=== PATIENT | male | born 1980 | race Asian ===

== ENCOUNTER 2017-07-24 09:18 | Emergency (ER) | payer OTHER ==
--- NOTE | 2017-07-24 09:20 | PDOC ---
Attending Attestation - Resident Resident Name: Hernando Bright - ED Attending Attestation I have performed the following: I have examined & evaluated the patient, The case was reviewed & discussed with the resident, I agree w/resident's findings & plan, Exceptions are as noted - HPI HPI: 36 yo M no significant PMH presents with R hand injury. He states he was working with a lathe, a piece of metal struck his hand, lacerating multiple fingers at once. His coworkers applied a tourniquet to the upper arm and transported him to ED for further evaluation. Wounds have oozed blood, no active bleeding. No other injuries. Tetanus is not up to date. - Physicial Exam PE: GENERAL: Awake, alert, and fully oriented, in no acute distress HEAD: No signs of trauma EYES: PERRLA, EOMI, sclera anicteric, conjunctiva clear ENT: Auricles normal inspection, hearing grossly normal, nares patent, oropharynx clear without exudates. Moist mucosa NECK: Normal ROM, supple, no lymphadenopathy, JVD, or masses LUNGS: Breath sounds equal, clear to auscultation bilaterally. No wheezes, and no crackles HEART: Regular rate and rhythm, normal S1 and S2, no murmurs, rubs or gallops EXTREMITIES: Normal range of motion, no edema. No clubbing or cyanosis. No cords, erythema, or tenderness NEUROLOGICAL: Cranial nerves II through XII grossly intact. Normal speech, normal gait. Motor and sensation intact. SKIN: Warm, Dry, normal turgor, no rashes or lesions noted. R hand with deformities to fingers 2-5. Lacerations to PIPs fingers 2-5, as well as DIP of 2nd finger. - Medical Decision Making Ortho consulted to evaluate, as the dislocations were significant, as well as the lacerations. All fingers were reduced in ED, lacerations repaired. Covered with tdap and ancef. Will splint and DC home on prophylactic abx.
[2017-07-24] MEDS ORDERED: morphine CARPU-JECT 4 MG/1 ML DISP.SYRIN IVPUSH ONE ×3 (09:27→09:51)
[2017-07-24 09:38] VITALS: TEMP 98; BMI 25.9
[2017-07-24 09:52] LABS: BASOPHIL 2.1 % (0-2.0); EOSINOPHIL 1.2 % (0-4.5); MCH 25.3 pg (25.7-33.7); MCHC 32.2 g/dl (32.0-35.9); MEAN CELL VOLUME 78.6 fl (80-96); MEAN PLT VOLUME 8.6 fl (7.5-11.1); NEUTROPHILS 37.5 % (42.8-82.8); PLATELET COUNT 398 K/MM3 (134-434); RDW 13.7 % (11.9-15.9); WHITE BLOOD COUNT 10.1 K/mm3 (4.0-10.8)
[2017-07-24] MEDS ORDERED: CEFAZOLIN 1 GM in DEXTROSE 5%-WATER - 50 ML IVPB ONE (09:55)
[2017-07-24] MEDS ORDERED: SODIUM CHLORIDE 1,000 ML IV STA (09:55)
[2017-07-24] MEDS ORDERED: morphine CARPU-JECT 4 MG/1 ML DISP.SYRIN ONE (10:00)
[2017-07-24] MEDS ORDERED: ceFAZolin SODIUM 1 GM VIAL ONE (10:00)
[2017-07-24 10:03] LABS: INR 1.04 (0.82-1.09); PROTHROMBIN TIME (PATIENT) 11.6 SEC (10.2-13.0)
[2017-07-24] MEDS ORDERED: LIDOCAINE HCL 2% (20ML MULTI-DOSE VIAL) NR ONE ×2 (10:05→10:13)
[2017-07-24 10:08] LABS: ALBUMIN 4.3 g/dl (3.5-5.0); ALK PHOS 97 U/L (32-92); ANION GAP 11 (8-16); BILIRUBIN,TOTAL 0.6 mg/dl (0.2-1.0); CALCIUM 9.7 mg/dl (8.4-10.2); CO2 23 mmol/L (22-28); CREATININE 0.8 mg/dl (0.6-1.3); GLUCOSE,RANDOM 112 mg/dl (74-106); PHOSPHOROUS 2.9 mg/dl (2.5-4.6); SGOT/AST 23 U/L (10-42); SGPT/ALT 23 U/L (10-40); TOT PROT 7.8 g/dl (6.4-8.3)
--- NOTE | 2017-07-24 10:32 | PDOC ---
History of Present Illness - General Chief Complaint: Injury Stated Complaint: LACERATION R HAND Time Seen by Provider: 07/24/17 09:20 - History of Present Illness Initial Comments: 36 year old previously healthy male presenting after getting his hand caught in a metal lathe at work. Originally,the tip of his glove was caught in the machine as it was moving then his fingers were brought into the machine. There was immediate deformity of the hand and bleeding from the palmar surface of his PIPs. He was given no medication in route. the machine itself was metal and he did not get cut by a metal blade but was caused the most trauma by blunt force and twisting. VSS on arrival. 07/24/17 10:27 07/24/17 15:12 Past History - Past Medical History Allergies/Adverse Reactions: Allergies Allergy/AdvReac Type Severity Reaction Status Date / Time No Known Allergies Allergy Verified 07/24/17 09:46 Home Medications: Ambulatory Orders Cephalexin Monohydrate [Keflex -] 500 mg PO BID #20 capsule 07/24/17 Oxycodone HCl/Acetaminophen [Percocet 5-325 mg Tablet] 1 - 2 tab PO Q6H #20 tab MDD 4 tablets 07/24/17 Other medical history: pt denies - Psycho/Social/Smoking Cessation Hx Anxiety: No Suicidal Ideation: No Smoking History: Never smoked Hx Alcohol Use: No Drug/Substance Use Hx: No Substance Use Type: None Review of Systems - Review of Systems Constitutional: No: Chills, Diaphoresis, Fever HEENTM: No: Blurred Vision, Tearing Respiratory: No: Cough, Shortness of Breath, Wheezing, Productive cough Cardiac (ROS): No: Chest Pain, Edema ABD/GI: No: Constipated, Diarrhea, Nausea *Physical Exam - Vital Signs Last Vital Signs Temp Pulse Resp BP Pulse Ox 98 F 77 20 109/83 100 07/24/17 09:19 07/24/17 09:19 07/24/17 09:19 07/24/17 09:57 07/24/17 09:19 - Physical Exam General Appearance: Yes: Nourished, Appropriately Dressed, Apparent Distress, Severe Distress HEENT: positive: EOMI, DAYA, Normal Voice Respiratory/Chest: positive: Lungs Clear, Normal Breath Sounds. negative: Respiratory Distress Cardiovascular: positive: Regular Rhythm, Regular Rate, S1, S2. negative: Murmur Gastrointestinal/Abdominal: positive: Normal Bowel Sounds, Flat, Soft. negative : Tender Musculoskeletal: positive: Other (Open wounds across the 2nd, 3rd, 4th, and 5th palmar PIP surface of is right hand with extravasation of soft tissue and violation of joint space. 2-5th digits of the right hand exhibited ulnar deviation indicating dislocation vs. fracture. Sensation intact at the tips of his fingers but unable to move his fingers pre-anesthesis 2/2 to pain. Post anesthesia and reduction he still had sensation hat his finger tips and was able to extend and flex his digits with slightly limited range of motion 2/2 pain. Minimially bleeding from areas of skin breakage, no debris identified in wound, distal skin did not appeared cyanotic. Pain across entire hand but mostly in 4th digit.). negative: Normal Inspection Extremity: positive: Tender (Per above). negative: Normal Inspection (Per above ), Normal Range of Motion (Per above) Integumentary: positive: Warm. negative: Normal Color, Dry, Cyanotic Neurologic: positive: Fully Oriented, Alert, Normal Mood/Affect Procedures - Laceration/Wound Repair Right Volar Hand Wound Length: 12.6 to 20 cm Wound Explored: clean, no foreign body present Wound's Depth, Shape: superficial, linear Irrigated w/ Saline: Yes Betadine Prep: No Anesthesia: 2% Lidocaine Amount of Anesthetic (ccs): 10 Wound Debrided: minimal Wound Repaired With: Sutures Suture Size/Type: 4:0, nylon Layer Closure: Yes (vertical matresses used occasionally) Sterile Dressing Applied: Yes (bacitracin) Splint Applied: Yes (Volar hand splint with kerlex and geoffrey wraps) Type of Splint Applied: Volar hand splint Sling Applied: No Progress: Patient was given 14 IV morphine and exploration of his hand after irrigation of 1 L sterile water revealed 5 clean mostly linear lacerations (Over volar PIP joints and one along the enoch-medial edge of the 2nd digit) extending into the soft tissue without exposed tendon but both the 3rd and 4th digit PIP joint spaces appeared visible prior to reduction.A wrist block was performed and the fingers were reduced by orthopedic surgery and further anesthesia with digital blocks was employed. The wounds were well anesthetized. Repair of the 5th, 4th , 3rd digit, and proximal 2nd digit only required simple interrupted sutures. The distal 2nd digit wound required two vertical mattress sutures but was well approximated. There was minimal bleeding and the patient tolerated the procedure fairly well. He was neurovascularly intact before and after the procedure at the distal edge of his fingers. 07/24/17 14:52 - Additional Procedures Additional Procedures: other (Ring removal with ring cutting device. Two cuts had to be made with the ring cutting device because of the density of the metal and inability to pry it apart after the first incision.) ED Treatment Course - LABORATORY CBC & Chemistry Diagram: 07/24/17 09:29 07/24/17 09:29 - ADDITIONAL ORDERS Additional order review: Laboratory Results 07/24/17 07/24/17 09:29 09:29 INR 1.04 Sodium 137 Potassium 3.8 Chloride 103 Carbon Dioxide 23 Anion Gap 11 BUN 13 Creatinine 0.8 Creat Clearance w eGFR > 60 Random Glucose 112 H Calcium 9.7 Phosphorus 2.9 Magnesium 2.0 Total Bilirubin 0.6 AST 23 ALT 23 Alkaline Phosphatase 97 H Total Protein 7.8 Albumin 4.3 07/24/17 09:29 RBC 5.57 MCV 78.6 L MCHC 32.2 RDW 13.7 MPV 8.6 Neutrophils % 37.5 L Lymphocytes % 52.5 H Monocytes % 6.7 Eosinophils % 1.2 Basophils % 2.1 H - RADIOLOGY Radiology Studies Ordered: Category Date Time Status HAND- RIGHT [RAD] Stat Radiology 07/24/17 10:25 Ordered - Medications Given in the ED: ED Medications Discontinued Medications Generic Name Dose Route Start Last Admin Trade Name Freq PRN Reason Stop Dose Admin Cefazolin Sodium 1 gm/ 50 mls @ 100 mls/hr 07/24/17 09:55 07/24/17 10:09 Dextrose IVPB 07/24/17 10:24 100 mls/hr ONCE ONE Administration Morphine Sulfate 6 mg 07/24/17 09:27 07/24/17 09:30 Morphine Injection - IVPUSH 07/24/17 09:28 6 mg ONCE ONE Administration Morphine Sulfate 4 mg 07/24/17 09:39 07/24/17 09:46 Morphine Injection - IVPUSH 07/24/17 09:40 4 mg ONCE ONE Administration Morphine Sulfate 4 mg 07/24/17 09:51 07/24/17 10:05 Morphine Injection - IVPUSH 07/24/17 09:52 4 mg ONCE ONE Administration Medical Decision Making - Medical Decision Making 36 year old male with right hand injury. On portable x-ray there appears to be dislocation at the PIPs of digits 1-4 as well as lacerations into the joint space of digits 3 and 4 with laceration extending into the soft tissue of joints 2 and 5. Orthopedics was called to evaluate the wound. 14 of morphine (re -dosed twice after initial 6 IV). His ring was removed with two cuts from the ring cutter. Fingers were reduced by othopedics after a wrist and two digital blocks were performed. Post reduction X ray demonstrated well reduced 3rd and 4th digits with 2nd and 5th digits partially obscured at the dips because of flexion. Hand was irrigated and closed per procedure note. 07/24/17 10:47 There were three films taken of his hand because the 2nd post reduction film did not clearly show his 4th and 2nd digits. On the final set of films it appeared as if his 2nd DIP was dislocated. There were no ortho physicians in house and he stil had good motion in his 2nd digit joints with intact neurvaculature so further evaluation can be deferred until his return within 48 hours. He was discharged with Ancef x 10 days and oxycodone x 20 pills. 07/24/17 14:46 IF HE RETURNS ON 07/25/17, PLEASE GIVE ORTHO A CALL BECAUSE THEY WILL BE IN- HOUSE. 07/24/17 15:17 *DC/Admit/Observation/Transfer Diagnosis at time of Disposition: Hand injury - Discharge Dispostion Admit: No - Prescriptions Prescriptions: Cephalexin Monohydrate [Keflex -] 500 mg PO BID #20 capsule Oxycodone HCl/Acetaminophen [Percocet 5-325 mg Tablet] 1 - 2 tab PO Q6H #20 tab MDD 4 tablets - Referrals Referrals: Darci Ibarra MD [Staff Physician] - Emergency Dept,PhysicianMD [Emergency Physician] - - Patient Instructions Printed Discharge Instructions: DI for Finger Dislocation, DI for Laceration Repair -- Complex, DI for Laceration Repair -- Finger Additional Instructions: Please keep your hand wounds clean and dry. You must keep the cast on 24 hours a day and keep it dry. If the tips of your fingers are becoming numb or more painful then you can loosen the bandages. Please return to the ED tomorrow or the day after to have someone take a look at your wounds to make sure there is no infection. Please return earlier if you have fevers, chills, or other sick symptoms. Please make an appointment with the orthopedic doctor who we listed on this sheet. - Post Discharge Activity Work/School Note: Back to Work
[2017-07-24] MEDS ORDERED: HYDROmorphone HCL CARPU-JECT 1 MG/1 ML DISP.SYRIN ONE (12:23)
[2017-07-24] MEDS ORDERED: HYDROmorphone HCL CARPU-JECT 1 MG/1 ML DISP.SYRIN IVPUSH ONE (12:33)
[2017-07-24] MEDS ORDERED: DIPHTH,PERTUSS(ACELL),TET 0.5 ML DISP.SYRIN IM ONE (13:22)
[2017-07-24] MEDS ORDERED: ONDANSETRON 4 MG/2 ML VIAL IVPUSH ONE (13:45)
[2017-07-24] MEDS ORDERED: ONDANSETRON 4 MG/2 ML VIAL ONE (13:47)
[2017-07-24] MEDS ORDERED: IBUPROFEN 400 MG TABLET (FP) PO ONE ×2 (14:47→14:49)
[2017-07-24 14:56] VITALS: BP 125/89; PULSE 52
--- NOTE | 2017-07-26 11:23 | CONSULT ---
Consult Reason for Consultation:: right hand - History of Present Illness History of Present Illness: 36-year-old male is here for evaluation of his right hand. His glove got caught in a piece of heavy machinery and he immediately had pain in his hand. He had open wounds on his hands and went to the emergency room and had an x-ray was diagnosed with PIP dislocations of the index through small finger. Orthopedics was consulted. His pain is worse with movement and better with rest. - History Source History Provided By: Patient, Medical Record - Alcohol/Substance Use Hx Alcohol Use: No - Smoking History Smoking history: Never smoked Home Medications - Allergies Allergies/Adverse Reactions: Allergies Allergy/AdvReac Type Severity Reaction Status Date / Time No Known Allergies Allergy Verified 07/26/17 08:55 - Home Medications Home Medications: Ambulatory Orders Cephalexin Monohydrate [Keflex -] 500 mg PO BID #20 capsule 07/24/17 Oxycodone HCl/Acetaminophen [Percocet 5-325 mg Tablet] 1 - 2 tab PO Q6H #20 tab MDD 4 tablets 07/24/17 Review of Systems - Review of Systems Constitutional: reports: No Symptoms Eyes: reports: No Symptoms HENT: reports: No Symptoms Neck: reports: No Symptoms Cardiovascular: reports: No Symptoms Respiratory: reports: No Symptoms Gastrointestinal: reports: No Symptoms Genitourinary: reports: No Symptoms Breasts: reports: No Symptoms Reported Musculoskeletal: reports: Extremity Pain Integumentary: reports: Wound Neurological: reports: No Symptoms Endocrine: reports: No Symptoms Hematology/Lymphatic: reports: No Symptoms Physical Exam Vital Signs: Vital Signs Temperature 98 F 07/24/17 09:19 Pulse Rate 52 L 07/24/17 14:55 Respiratory Rate 16 07/24/17 14:55 Blood Pressure 125/89 07/24/17 14:55 O2 Sat by Pulse Oximetry (%) 97 07/24/17 14:55 Constitutional: Yes: Well Nourished, Mild Distress HENT: Yes: Atraumatic, Normocephalic Extremities: Yes: Other ( right hand: There are open wounds volarly along the index, long, ring and small fingers at the PIP joints consistent with forceful dislocations. There is also a laceration along the tip of the index finger volarly. there is no sign of infection. Sensation is intact except for the tip of the index finger just distal to the laceration here. FDS and FDP appear intact in all fingers. Fingers are well-perfused. Compartments soft.) Labs: CBC, BMP 07/24/17 09:29 07/24/17 09:29 Imaging - Results X-ray: Report Reviewed, Image Reviewed ( PIP dislocations of the index through small finger) Assessment/Plan I discussed today's findings and treatment options the patient. I recommended reduction of the index, long, ring and small finger PIP joints. He would like to proceed. Procedure, right index finger, long finger, ring finger and small finger PIP joint reductions. Using sterile technique 10 cc of 2% lidocaine was used to anesthetize the hand by performing a median and ulnar nerve block at the wrist. After adequate anesthesia was obtained a manipulation was performed on each finger and improved alignment was obtained. The patient tolerated the procedure well. After the procedure the resident physician closed the wounds. The evaluation of this patient and procedure was performed together with Dr. Darci Ibarra Postreduction x-rays were obtained which showed persistent subluxation of the small finger PIP joint. The patient was discharged by the ER staff prior to review of the x-rays and was recalled to the ER but did not return immediately.
== END 2017-07-24 15:09 | disposition home or self-care (01) ==
LOC: FER 09:18
PROC: 0HQFXZZ Repair Right Hand Skin, External Approach (ICD-10-PCS; principal; 2017-07-24)
PROC: 0RSSXZZ Reposition Right Carpometacarpal Joint, External Approach (ICD-10-PCS; 2017-07-24)
PROC: 3E033GC Introduction of Other Therapeutic Substance into Peripheral Vein, Percutaneous Approach (ICD-10-PCS; 2017-07-24)
PROC: 3E0337Z Introduction of Electrolytic and Water Balance Substance into Peripheral Vein, Percutaneous Approach (ICD-10-PCS; 2017-07-24)
PROC: 3E0234Z Introduction of Serum, Toxoid and Vaccine into Muscle, Percutaneous Approach (ICD-10-PCS; 2017-07-24)
DX: S63.124A Dislocation of interphalangeal joint of right thumb, initial encounter (principal); S63.270A Dislocation of unspecified interphalangeal joint of right index finger, initial encounter; S63.272A Dislocation of unspecified interphalangeal joint of right middle finger, initial encounter; S63.274A Dislocation of unspecified interphalangeal joint of right ring finger, initial encounter; S63.276A Dislocation of unspecified interphalangeal joint of right little finger, initial encounter; S61.210A Laceration without foreign body of right index finger without damage to nail, initial encounter; S61.216A Laceration without foreign body of right little finger without damage to nail, initial encounter; S61.212A Laceration without foreign body of right middle finger without damage to nail, initial encounter; S61.214A Laceration without foreign body of right ring finger without damage to nail, initial encounter; S61.011A Laceration without foreign body of right thumb without damage to nail, initial encounter; W31.89XA Contact with other specified machinery, initial encounter; Y93.89 Activity, other specified; Y92.9 Unspecified place or not applicable; Y99.0 Civilian activity done for income or pay
CPT/HCPCS: 36415; 73130-TC-RT; 80053; 83735; 84100; 85025; 85610; 86850; 86900; 86901; 90715; 99285-25

== ENCOUNTER 2017-07-26 08:50 | Day surgery (SDC) | payer OTHER ==
[2017-07-26 09:14] VITALS: BMI 29.1
[2017-07-26] MEDS ORDERED: LIDOCAINE HCL 2% (20ML MULTI-DOSE VIAL) NR ONE (10:03)
--- NOTE | 2017-07-26 10:19 | PDOC ---
History of Present Illness - General Chief Complaint: Revisit,Wound Recheck Stated Complaint: WOUND CHECK Time Seen by Provider: 07/26/17 08:52 History Source: Patient (Patient seen in ER on 07.24 for dislocation, lacerations hand , sutures done in ER, Ortho consult Kp BELLE on behalf of Dr Ibarra seen in ER at that time , advised to follow up in ER.) Exam Limitations: No Limitations - History of Present Illness Occurred: reports: other (2 days ago) Severity: reports: moderate Past History - Past Medical History Allergies/Adverse Reactions: Allergies Allergy/AdvReac Type Severity Reaction Status Date / Time No Known Allergies Allergy Verified 07/26/17 08:55 Home Medications: Ambulatory Orders Cephalexin Monohydrate [Keflex -] 500 mg PO BID #20 capsule 07/24/17 Oxycodone HCl/Acetaminophen [Percocet 5-325 mg Tablet] 1 - 2 tab PO Q6H #20 tab MDD 4 tablets 07/24/17 Other medical history: DENIES - Psycho/Social/Smoking Cessation Hx Anxiety: No Suicidal Ideation: No Smoking History: Never smoked Have you smoked in the past 12 months: No Information on smoking cessation initiated: No Hx Alcohol Use: No Drug/Substance Use Hx: No Substance Use Type: None Review of Systems - Review of Systems Able to Perform ROS?: Yes Is the patient limited [place] proficient: Yes Constitutional: No: Symptoms Reported, See HPI, Chills, Diaphoresis, Fever, Loss of Appetite, Malaise, Night Sweats, Weakness, Weight Stable, Unintentional Wgt. Loss, Unexplained wgt Loss, Other HEENTM: No: Symptoms Reported, See HPI, Eye Pain, Blurred Vision, Tearing, Recent change in vision, Double Vision, Cataracts, Ear Pain, Ocular Prothesis, Ear Discharge, Nose Pain, Nose Congestion, Tinnitus, Nose Bleeding, Hearing Loss , Throat Pain, Throat Swelling, Mouth Pain, Dental Problems, Difficulty Swallowing, Mouth Swelling, Other Respiratory: No: Symptoms reported, See HPI, Cough, Orthopnea, Shortness of Breath, SOB with Exertion, SOB at Rest, Stridor, Wheezing, Productive cough, Hemoptysis, Other Cardiac (ROS): No: Symptoms Reported, See HPI, Chest Pain, Edema, Irregular Heart Rate, Lightheadedness, Palpitations, Syncope, Chest Tightness, Other Musculoskeletal: Yes: See HPI, Other (Pain , swelling affected hand with sutures in place on the volar aspect of the hand) Integumentary: Yes: See HPI *Physical Exam - Vital Signs Last Vital Signs Temp Pulse Resp BP Pulse Ox 98.1 F 77 20 132/62 99 07/26/17 08:51 07/26/17 08:51 07/26/17 08:51 07/26/17 08:51 07/26/17 08:51 - Physical Exam General Appearance: Yes: Nourished, Appropriately Dressed, Mild Distress HEENT: positive: DAYA Neck: positive: Supple Extremity: positive: Normal Capillary Refill, Other (Swollen hand, sutures in place moderately tender on the volar aspect). negative: Normal Range of Motion Neurologic: positive: Fully Oriented, Alert, Normal Mood/Affect ED Treatment Course - LABORATORY CBC & Chemistry Diagram: 07/26/17 11:53 07/26/17 11:53 Progress Note - Progress Note Progress Note: Seen in ER by Kp BELLE on behalf of Dr Darci Ibarra Decision to admit to OR for surgery, fx PIP joint *DC/Admit/Observation/Transfer Diagnosis at time of Disposition: Hand injury Qualifiers: Encounter type: subsequent encounter Laterality: right Qualified Code(s): S69.91XD - Unspecified injury of right wrist, hand and finger(s), subsequent encounter - Discharge Dispostion Admit: Yes Decision to Admit order Date/Time: 07/26/17 16:40 Admit to O.R. by Dr Ibarra
[2017-07-26 12:10] LABS: BASOPHIL 0.4 % (0-2.0); EOSINOPHIL 0.3 % (0-4.5); MCH 25.5 pg (25.7-33.7); MCHC 32.7 g/dl (32.0-35.9); MEAN CELL VOLUME 78.1 fl (80-96); MEAN PLT VOLUME 8.5 fl (7.5-11.1); NEUTROPHILS 71.6 % (42.8-82.8); PLATELET COUNT 351 K/MM3 (134-434); RDW 14.4 % (11.9-15.9); WHITE BLOOD COUNT 10.8 K/mm3 (4.0-10.8)
[2017-07-26 12:26] LABS: ALBUMIN 4.2 g/dl (3.5-5.0); ALK PHOS 91 U/L (32-92); ANION GAP 4 (8-16); BILIRUBIN,TOTAL 0.6 mg/dl (0.2-1.0); CALCIUM 9.3 mg/dl (8.4-10.2); CO2 28 mmol/L (22-28); CREATININE 0.7 mg/dl (0.6-1.3); GLUCOSE,RANDOM 101 mg/dl (74-106); SGOT/AST 24 U/L (10-42); SGPT/ALT 23 U/L (10-40); TOT PROT 7.9 g/dl (6.4-8.3)
[2017-07-26] MEDS ORDERED: morphine CARPU-JECT 4 MG/1 ML DISP.SYRIN ONE (13:18)
[2017-07-26] MEDS ORDERED: ONDANSETRON 4 MG/2 ML VIAL ONE ×2 (13:18→17:30)
[2017-07-26] MEDS ORDERED: ONDANSETRON 4 MG/2 ML VIAL IVPUSH ONE (13:35)
[2017-07-26] MEDS ORDERED: morphine CARPU-JECT 4 MG/1 ML DISP.SYRIN IVPUSH ONE (13:35)
[2017-07-26] MEDS ORDERED: ACETAMINOPHEN 325 MG TABLET (FP) PO PRN (17:21)
[2017-07-26] MEDS ORDERED: oxyCODONE HCL 5 MG TABLET PO PRN ×2 (17:21→18:37)
[2017-07-26] MEDS ORDERED: MIDAZOLAM HCL 2 MG/2 ML SINGLE DOSE VIAL ONE (17:30)
[2017-07-26] MEDS ORDERED: DEXAMETHASONE SOD PHOSPHATE 4 MG/1 ML VIAL ONE (17:30)
[2017-07-26] MEDS ORDERED: PROPOFOL 20 ML ONE (17:30)
[2017-07-26] MEDS ORDERED: BUPIVACAINE HCL/PF 0.25% (2.5MG/ML) 10 ML VIAL IJ ONE (17:57)
[2017-07-26] MEDS ORDERED: BUPIVACAINE HCL/PF 2.5 MG/ML - 30 ML VIAL IJ ONE (18:03)
[2017-07-26] MEDS ORDERED: LACTATED RINGERS SOLUTION 1,000 ML IV SCH (18:45)
[2017-07-26 21:09] VITALS: BP 124/84; PULSE 60; TEMP 98
--- NOTE | 2017-07-27 09:04 | HP ---
DATE OF ADMISSION: 07/26/2017 CHIEF COMPLAINT: Right hand injury. HISTORY OF PRESENT ILLNESS: The patient injured his hand several days ago. He was treated in the emergency room by myself with closed reduction of multiple open PIP dislocations. Post reduction x-ray showed reduction of the index, long, and ring finger PIP joints with persistent subluxation with likely entrapped fragments at the small finger PIP joint. The patient had been discharged by the emergency room prior to my review of post-reduction x-rays, and he was recalled to the emergency room. He came in today, and I saw him in the emergency room, and the wounds all looked good. I attempted to reduce the PIP joint again of the small finger, but it was not reducing. Therefore, I discussed the options with the patient. We decided to proceed with surgical treatment with open reduction in the operating room. The risks, benefits, and alternatives of the open reduction of the PIP dislocation of the small finger on the right hand were discussed at length with the patient, and he desired to proceed. IZZY WELSH M.D. [id number]
--- NOTE | 2017-07-27 09:09 | OP ---
DATE OF OPERATION: 07/26/2017 PREOPERATIVE DIAGNOSIS: Right small finger proximal interphalangeal joint dislocation with intraarticular fragment preventing reduction. POSTOPERATIVE DIAGNOSIS: Right small finger proximal interphalangeal joint dislocation with intraarticular fragment preventing reduction. OPERATIVE PROCEDURE: Open reduction of right small finger proximal interphalangeal joint dislocation. SURGEON: Darci Welsh MD CERTIFIED WELDER: BARBRA Arboleda ANESTHESIA: General. COMPLICATIONS: None. ESTIMATED BLOOD LOSS: Minimal. INDICATION FOR PROCEDURE: The patient is a male with the above finding, indicated for operative treatment. Risks, benefits, and alternatives were discussed with the patient at length. Proper informed consent was obtained. DESCRIPTION OF PROCEDURE: After proper identification of the patient and correct operative site, the patient was brought to the operating room and placed supine on the operative table. Prominences were well padded. General anesthesia was provided by the anesthesiologist adequate for the procedure. Right upper extremity was prepped and draped in the usual sterile fashion. A well-padded tourniquet was placed as well as sterile prep. Esmarch bandage to exsanguinate the right upper extremity. Tourniquet was inflated to 250 mmHg. Patient's open laceration volarly over the small finger PIP joint was opened, and blunt dissection was performed to the subcutaneous tissues. The volar plate had been ruptured, and the joint was easily identified and was jackknifed. The volar plate and a small volar plate avulsion fracture fragment were trapped within the joint and were removed. The joint was then easily reduced and found to be stable from 0-100 degrees of motion. Therefore, no internal fixation was necessary. The wound was irrigated with copious amounts of normal saline. Radiographs were taken in multiple planes to confirm proper reduction and stability. The remainder of the fingers were also visualized and found to be stable with the PIP joints. The wound was repaired with a 5-0 nylon suture. Sterile dressings were placed. Patient was reversed from anesthesia and brought to the recovery room in stable condition. He tolerated the procedure well. DARCI WELSH M.D. [id number]
== END 2017-07-26 23:45 | disposition home or self-care (01) ==
LOC: FER 08:50 → FASU 20:16 → FM/S 20:19 → FASU 23:45
PROVIDERS: ATTEND Orthopaedic Surgery Hand Surgery
PROC: 0RSW0ZZ Reposition Right Finger Phalangeal Joint, Open Approach (ICD-10-PCS; principal; 2017-07-26 17:42)
DX: S62.616A Displaced fracture of proximal phalanx of right little finger, initial encounter for closed fracture (principal); X58.XXXA Exposure to other specified factors, initial encounter; Y93.9 Activity, unspecified; Y92.9 Unspecified place or not applicable; Y99.9 Unspecified external cause status
CPT/HCPCS: 36415; 73130-TC-RT; 80053; 85025; 94760; 99282-25